=== PATIENT | female | born 1960 | race Caucasian/White ===

== ENCOUNTER 2019-10-14 16:31 | Inpatient (IN) ==
[2019-10-16] MEDS ORDERED: Ondansetron ODT 4 MG TAB.RAPDIS PO PRN (15:46)
[2019-10-16] MEDS: *HR* OxyCODONE Immed Rel 5 MG TABLET PO PRN (16:22)
[2019-10-16] MEDS: *HR* Metformin 500 MG TABLET PO SCH (16:22)
[2019-10-16] MEDS: Pregabalin 50 MG CAPSULE PO SCH (22:39)
[2019-10-16] MEDS: Baclofen 10 MG TABLET PO SCH (22:40)
[2019-10-17] MEDS: *HR* Enoxaparin 40 MG/0.4 ML SYRINGE SQ SCH (05:53)
[2019-10-17] MEDS: *HR* OxyCODONE Immed Rel 5 MG TABLET PO PRN ×4 (05:56→20:50)
[2019-10-17 06:52] LABS: Basophils % 0.4 %; Eosinophils # 0.5 K/mcL (0.0-0.6); Eosinophils % 4.8 %; Hematocrit 38.6 % (35.3-44.9); Hemoglobin 12.9 g/dL (11.5-15.4); Immature Granulocytes % 0.6 % (0-4); Lymphocytes # 3.6 K/mcL (0.6-4.6); Lymphocytes % 35.3 %; Mean Corpuscular HGB Conc 33.4 g/dL (31.6-35.5); Mean Corpuscular Hemoglobin 30.4 pg (28.0-33.3); Monocytes # 0.9 K/mcL (0.0-1.3); Monocytes % 9.3 %; Platelet Count 416 K/mcL (140-400); Red Blood Count 4.24 M/mcL (3.82-4.97); Red Cell Distribution Width 11.7 % (11.5-14.5); Segmented Neutrophils % 49.6 %; White Blood Count 10.1 K/mcL (4.3-11.1)
[2019-10-17 07:10] LABS: BUN/Creatinine Ratio 26 (6-26); Blood Urea Nitrogen 19 mg/dL (8-23); Calcium 9.3 mg/dL (8.6-10.3); Carbon Dioxide 32 mEq/L (23-29); Chloride 97 mEq/L (98-107); Glucose 153 mg/dL (70-105); Osmolality,Calculated 285 (280-300); Potassium 3.3 mEq/L (3.5-5.1); Sodium 135 mEq/L (136-145); eGFR For African Americans > 60 (> 60); eGFR For Non-African Americans > 60 (> 60)
[2019-10-17] MEDS ORDERED: [UNRECOGNIZED DRUG - REMARK] PO SCH (09:00)
[2019-10-17] MEDS: Ascorbic Acid 500 MG TABLET PO SCH (09:02)
[2019-10-17] MEDS: *HR* Metformin 500 MG TABLET PO SCH ×2 (09:03→17:09)
[2019-10-17] MEDS: Pregabalin 50 MG CAPSULE PO SCH ×3 (09:04→20:38)
[2019-10-17] MEDS: Cholecalciferol (D-3) 1,000 UNIT (25MCG) TABLET PO SCH (09:04)
[2019-10-17] MEDS: Multivit/Ca/Min/Fe/FA 1 TAB TABLET PO SCH (09:05)
[2019-10-17] MEDS: Cyanocobalamin (B-12) 1,000 MCG TABLET PO SCH (09:05)
[2019-10-17] MEDS: Baclofen 10 MG TABLET PO SCH (20:38)
[2019-10-18] MEDS: *HR* Enoxaparin 40 MG/0.4 ML SYRINGE SQ SCH (04:53)
[2019-10-18] MEDS: Cyanocobalamin (B-12) 1,000 MCG TABLET PO SCH (08:53)
[2019-10-18] MEDS: Pregabalin 50 MG CAPSULE PO SCH ×3 (08:53→20:16)
[2019-10-18] MEDS: *HR* Metformin 500 MG TABLET PO SCH ×2 (08:54→17:41)
[2019-10-18] MEDS: Cholecalciferol (D-3) 1,000 UNIT (25MCG) TABLET PO SCH (08:54)
[2019-10-18] MEDS: Ascorbic Acid 500 MG TABLET PO SCH (08:54)
[2019-10-18] MEDS: Multivit/Ca/Min/Fe/FA 1 TAB TABLET PO SCH (12:01)
[2019-10-18 13:24] LABS: Bilirubin,Urine Negative (Negative); Blood,Urine Negative (Negative); Clarity,Urine Clear (Clear); Color,Urine Yellow (Yellow); Glucose,Urine (UA) Normal (Normal); Ketones,Urine Negative (Negative); Leukocyte Esterase,Urine Negative (Negative); Nitrite,Urine Negative (Negative); PH,Urine 5.5 pH Units (5.0-8.0); Protein,Urine Trace mg/dL (Neg-Trace); Specific Gravity,Urine >= 1.030 (1.010-1.025); Urobilinogen,Urine Normal (Normal)
[2019-10-18] MEDS: *HR* OxyCODONE Immed Rel 5 MG TABLET PO PRN (14:06)
[2019-10-18] MEDS: Baclofen 10 MG TABLET PO SCH (20:15)
[2019-10-19 06:01] LABS: Hematocrit 34.3 % (35.3-44.9); Hemoglobin 11.7 g/dL (11.5-15.4); Mean Corpuscular HGB Conc 34.1 g/dL (31.6-35.5); Mean Corpuscular Hemoglobin 30.6 pg (28.0-33.3); Mean Corpuscular Volume 89.8 fL (83.0-100.0); Mean Platelet Volume 10.1 fL (9.4-12.4); Platelet Count 377 K/mcL (140-400); Red Blood Count 3.82 M/mcL (3.82-4.97); Red Cell Distribution Width 11.6 % (11.5-14.5); White Blood Count 10.1 K/mcL (4.3-11.1)
[2019-10-19] MEDS: *HR* Enoxaparin 40 MG/0.4 ML SYRINGE SQ SCH (06:01)
[2019-10-19 06:24] LABS: BUN/Creatinine Ratio 25 (6-26); Blood Urea Nitrogen 18 mg/dL (8-23); Carbon Dioxide 32 mEq/L (23-29); Chloride 95 mEq/L (98-107); Glucose 136 mg/dL (70-105); Osmolality,Calculated 284 (280-300); Potassium 3.4 mEq/L (3.5-5.1); Sodium 135 mEq/L (136-145); eGFR For African Americans > 60 (> 60); eGFR For Non-African Americans > 60 (> 60)
[2019-10-19] MEDS: Pregabalin 50 MG CAPSULE PO SCH ×3 (08:00→20:37)
[2019-10-19] MEDS: Ascorbic Acid 500 MG TABLET PO SCH (08:00)
[2019-10-19] MEDS: Cholecalciferol (D-3) 1,000 UNIT (25MCG) TABLET PO SCH (08:00)
[2019-10-19] MEDS: Cyanocobalamin (B-12) 1,000 MCG TABLET PO SCH (08:00)
[2019-10-19] MEDS: Multivit/Ca/Min/Fe/FA 1 TAB TABLET PO SCH (08:00)
[2019-10-19] MEDS: *HR* Metformin 500 MG TABLET PO SCH ×2 (08:00→17:21)
[2019-10-19] MEDS: *HR* OxyCODONE Immed Rel 5 MG TABLET PO PRN (10:48)
[2019-10-19] MEDS: Baclofen 10 MG TABLET PO SCH (20:36)
[2019-10-20] MEDS: *HR* OxyCODONE Immed Rel 5 MG TABLET PO PRN ×3 (03:24→21:55)
[2019-10-20] MEDS: *HR* Enoxaparin 40 MG/0.4 ML SYRINGE SQ SCH (05:28)
[2019-10-20 06:44] LABS: BUN/Creatinine Ratio 25 (6-26); Blood Urea Nitrogen 18 mg/dL (8-23); Calcium 9.3 mg/dL (8.6-10.3); Carbon Dioxide 32 mEq/L (23-29); Chloride 95 mEq/L (98-107); Glucose 131 mg/dL (70-105); Osmolality,Calculated 282 (280-300); Potassium 3.5 mEq/L (3.5-5.1); Sodium 134 mEq/L (136-145); eGFR For African Americans > 60 (> 60); eGFR For Non-African Americans > 60 (> 60)
[2019-10-20] MEDS: Ascorbic Acid 500 MG TABLET PO SCH (08:30)
[2019-10-20] MEDS: Pregabalin 50 MG CAPSULE PO SCH ×3 (08:30→21:56)
[2019-10-20] MEDS: Multivit/Ca/Min/Fe/FA 1 TAB TABLET PO SCH (08:30)
[2019-10-20] MEDS: Cyanocobalamin (B-12) 1,000 MCG TABLET PO SCH (08:31)
[2019-10-20] MEDS: Cholecalciferol (D-3) 1,000 UNIT (25MCG) TABLET PO SCH (08:31)
[2019-10-20] MEDS: *HR* Metformin 500 MG TABLET PO SCH ×2 (08:31→17:46)
[2019-10-20] MEDS: Baclofen 10 MG TABLET PO SCH (21:55)
[2019-10-21] MEDS: *HR* Enoxaparin 40 MG/0.4 ML SYRINGE SQ SCH (05:15)
[2019-10-21 06:26] LABS: BUN/Creatinine Ratio 20 (6-26); Blood Urea Nitrogen 14 mg/dL (8-23); Calcium 9.5 mg/dL (8.6-10.3); Carbon Dioxide 32 mEq/L (23-29); Chloride 95 mEq/L (98-107); Glucose 135 mg/dL (70-105); Osmolality,Calculated 283 (280-300); Potassium 3.5 mEq/L (3.5-5.1); Sodium 135 mEq/L (136-145); eGFR For African Americans > 60 (> 60); eGFR For Non-African Americans > 60 (> 60)
[2019-10-21] MEDS: Cyanocobalamin (B-12) 1,000 MCG TABLET PO SCH (08:37)
[2019-10-21] MEDS: Pregabalin 50 MG CAPSULE PO SCH ×3 (08:37→20:08)
[2019-10-21] MEDS: Multivit/Ca/Min/Fe/FA 1 TAB TABLET PO SCH (08:38)
[2019-10-21] MEDS: *HR* Metformin 500 MG TABLET PO SCH ×2 (08:38→17:08)
[2019-10-21] MEDS: Ascorbic Acid 500 MG TABLET PO SCH (08:38)
[2019-10-21] MEDS: Cholecalciferol (D-3) 1,000 UNIT (25MCG) TABLET PO SCH (08:38)
[2019-10-21] MEDS: *HR* OxyCODONE Immed Rel 5 MG TABLET PO PRN (10:40)
[2019-10-21] MEDS: Baclofen 10 MG TABLET PO SCH (20:09)
[2019-10-22] MEDS: *HR* Enoxaparin 40 MG/0.4 ML SYRINGE SQ SCH (05:18)
[2019-10-22] MEDS: Cyanocobalamin (B-12) 1,000 MCG TABLET PO SCH (09:39)
[2019-10-22] MEDS: Ascorbic Acid 500 MG TABLET PO SCH (09:39)
[2019-10-22] MEDS: Multivit/Ca/Min/Fe/FA 1 TAB TABLET PO SCH (09:39)
[2019-10-22] MEDS: Cholecalciferol (D-3) 1,000 UNIT (25MCG) TABLET PO SCH (09:40)
[2019-10-22] MEDS: Pregabalin 50 MG CAPSULE PO SCH ×3 (09:40→21:06)
[2019-10-22] MEDS: *HR* Metformin 500 MG TABLET PO SCH ×2 (09:41→17:15)
[2019-10-22] MEDS ORDERED: Bisacodyl 10 MG RECTAL SUPPOSITORY RC PRN (10:33)
[2019-10-22] MEDS: Baclofen 10 MG TABLET PO SCH (21:06)
[2019-10-23] MEDS: *HR* Enoxaparin 40 MG/0.4 ML SYRINGE SQ SCH (06:40)
[2019-10-23] MEDS: Ascorbic Acid 500 MG TABLET PO SCH (08:56)
[2019-10-23] MEDS: Cholecalciferol (D-3) 1,000 UNIT (25MCG) TABLET PO SCH (08:56)
[2019-10-23] MEDS: Multivit/Ca/Min/Fe/FA 1 TAB TABLET PO SCH (08:56)
[2019-10-23] MEDS: Cyanocobalamin (B-12) 1,000 MCG TABLET PO SCH (08:56)
[2019-10-23] MEDS: Pregabalin 50 MG CAPSULE PO SCH ×3 (08:56→21:50)
[2019-10-23] MEDS: *HR* Metformin 500 MG TABLET PO SCH ×2 (08:56→17:24)
[2019-10-23] MEDS: Baclofen 10 MG TABLET PO SCH (21:50)
[2019-10-24] MEDS: *HR* Enoxaparin 40 MG/0.4 ML SYRINGE SQ SCH (07:01)
[2019-10-24] MEDS: Multivit/Ca/Min/Fe/FA 1 TAB TABLET PO SCH (08:46)
[2019-10-24] MEDS: Cyanocobalamin (B-12) 1,000 MCG TABLET PO SCH (08:46)
[2019-10-24] MEDS: Pregabalin 50 MG CAPSULE PO SCH ×3 (08:46→21:18)
[2019-10-24] MEDS: Cholecalciferol (D-3) 1,000 UNIT (25MCG) TABLET PO SCH (08:46)
[2019-10-24] MEDS: Ascorbic Acid 500 MG TABLET PO SCH (08:46)
[2019-10-24] MEDS: *HR* Metformin 500 MG TABLET PO SCH ×2 (08:47→17:57)
[2019-10-24 13:31] LABS: Bilirubin,Urine Negative (Negative); Blood,Urine Moderate (Negative); Clarity,Urine Cloudy (Clear); Color,Urine Yellow (Yellow); Glucose,Urine (UA) Normal (Normal); Ketones,Urine Negative (Negative); Leukocyte Esterase,Urine Large (Negative); Nitrite,Urine Positive (Negative); Protein,Urine 30 mg/dL (Neg-Trace); Urobilinogen,Urine Normal (Normal)
[2019-10-24 14:15] LABS: Bacteria,Urine Many per hpf (None-Few); RBC,Urine 15-30 per hpf (0-3); Squamous Epithelial Cell,Urine Many per lpf (None-Few); WBC,Urine TNTC per hpf (0-3)
[2019-10-24] MEDS ORDERED: methylPREDNISolone 125 MG/2 ML VIAL IVP PRN (16:25)
[2019-10-24] MEDS ORDERED: methylPREDNISolone 125 MG/2 ML VIAL IM PRN (17:42)
[2019-10-24] MEDS: Cefuroxime PO 500 MG TABLET PO SCH (18:05)
[2019-10-24] MEDS: Baclofen 10 MG TABLET PO SCH (21:18)
[2019-10-25 05:48] LABS: Hematocrit 37.7 % (35.3-44.9); Hemoglobin 12.5 g/dL (11.5-15.4); Mean Corpuscular HGB Conc 33.2 g/dL (31.6-35.5); Mean Corpuscular Hemoglobin 30.3 pg (28.0-33.3); Mean Corpuscular Volume 91.3 fL (83.0-100.0); Mean Platelet Volume 10.4 fL (9.4-12.4); Platelet Count 367 K/mcL (140-400); Red Blood Count 4.13 M/mcL (3.82-4.97); Red Cell Distribution Width 11.8 % (11.5-14.5); White Blood Count 9.2 K/mcL (4.3-11.1)
[2019-10-25 06:03] LABS: BUN/Creatinine Ratio 19 (6-26); Blood Urea Nitrogen 14 mg/dL (8-23); Calcium 9.6 mg/dL (8.6-10.3); Carbon Dioxide 28 mEq/L (23-29); Chloride 100 mEq/L (98-107); Glucose 145 mg/dL (70-105); Osmolality,Calculated 289 (280-300); Potassium 3.8 mEq/L (3.5-5.1); Sodium 138 mEq/L (136-145); eGFR For African Americans > 60 (> 60); eGFR For Non-African Americans > 60 (> 60)
[2019-10-25] MEDS: Cefuroxime PO 500 MG TABLET PO SCH ×2 (06:56→17:19)
[2019-10-25] MEDS: *HR* Enoxaparin 40 MG/0.4 ML SYRINGE SQ SCH (06:56)
[2019-10-25] MEDS: Pregabalin 50 MG CAPSULE PO SCH ×3 (08:34→20:19)
[2019-10-25] MEDS: Multivit/Ca/Min/Fe/FA 1 TAB TABLET PO SCH (08:35)
[2019-10-25] MEDS: Ascorbic Acid 500 MG TABLET PO SCH (08:35)
[2019-10-25] MEDS: *HR* Metformin 500 MG TABLET PO SCH ×2 (08:35→17:19)
[2019-10-25] MEDS: Cholecalciferol (D-3) 1,000 UNIT (25MCG) TABLET PO SCH (08:35)
[2019-10-25] MEDS: Cyanocobalamin (B-12) 1,000 MCG TABLET PO SCH (08:35)
[2019-10-25] MEDS: Baclofen 10 MG TABLET PO SCH (20:18)
[2019-10-26] MEDS: Cefuroxime PO 500 MG TABLET PO SCH ×2 (05:40→16:39)
[2019-10-26] MEDS: *HR* Enoxaparin 40 MG/0.4 ML SYRINGE SQ SCH (05:40)
[2019-10-26] MEDS: Pregabalin 50 MG CAPSULE PO SCH ×3 (07:54→21:43)
[2019-10-26] MEDS: Cholecalciferol (D-3) 1,000 UNIT (25MCG) TABLET PO SCH (07:54)
[2019-10-26] MEDS: Multivit/Ca/Min/Fe/FA 1 TAB TABLET PO SCH (07:54)
[2019-10-26] MEDS: Cyanocobalamin (B-12) 1,000 MCG TABLET PO SCH (07:54)
[2019-10-26] MEDS: Ascorbic Acid 500 MG TABLET PO SCH (07:54)
[2019-10-26] MEDS: *HR* Metformin 500 MG TABLET PO SCH ×2 (07:55→16:39)
[2019-10-26] MEDS: Baclofen 10 MG TABLET PO SCH (21:42)
[2019-10-27] MEDS: *HR* Enoxaparin 40 MG/0.4 ML SYRINGE SQ SCH (06:07)
[2019-10-27] MEDS: Cefuroxime PO 500 MG TABLET PO SCH ×2 (06:08→17:34)
[2019-10-27] MEDS: Pregabalin 50 MG CAPSULE PO SCH ×3 (08:50→20:50)
[2019-10-27] MEDS: Multivit/Ca/Min/Fe/FA 1 TAB TABLET PO SCH (08:50)
[2019-10-27] MEDS: Cyanocobalamin (B-12) 1,000 MCG TABLET PO SCH (08:51)
[2019-10-27] MEDS: Ascorbic Acid 500 MG TABLET PO SCH (08:51)
[2019-10-27] MEDS: Cholecalciferol (D-3) 1,000 UNIT (25MCG) TABLET PO SCH (08:51)
[2019-10-27] MEDS: *HR* Metformin 500 MG TABLET PO SCH ×2 (08:51→17:34)
[2019-10-27] MEDS: Baclofen 10 MG TABLET PO SCH (20:50)
[2019-10-28] MEDS: Cefuroxime PO 500 MG TABLET PO SCH (06:26)
[2019-10-28] MEDS: *HR* Enoxaparin 40 MG/0.4 ML SYRINGE SQ SCH (06:26)
[2019-10-28 07:14] VITALS: BP 110/61
[2019-10-28] MEDS: Cholecalciferol (D-3) 1,000 UNIT (25MCG) TABLET PO SCH (08:20)
[2019-10-28] MEDS: Ascorbic Acid 500 MG TABLET PO SCH (08:20)
[2019-10-28] MEDS: Cyanocobalamin (B-12) 1,000 MCG TABLET PO SCH (08:20)
[2019-10-28] MEDS: Pregabalin 50 MG CAPSULE PO SCH (08:20)
[2019-10-28] MEDS: Multivit/Ca/Min/Fe/FA 1 TAB TABLET PO SCH (08:20)
[2019-10-28] MEDS: *HR* Metformin 500 MG TABLET PO SCH (08:20)
== END 2019-10-28 15:00 | disposition home health service (06) | DRG 949 ==
LOC: INPGRE 10-16 14:33

== ENCOUNTER 2021-06-30 07:19 | Inpatient (IN) ==
[2021-06-30] MEDS ORDERED: *HR* Dextrose 50 % in Water (Vial) 50 ML VIAL IVP PRN (18:16)
[2021-06-30] MEDS ORDERED: Dextrose Gel 15 GM/37.5 ML TUBE PO PRN ×2 (18:16)
[2021-06-30] MEDS ORDERED: D5% in Water 1,000 ML IVC PRN (18:16)
[2021-06-30] MEDS ORDERED: Hydrocortisone Rectal 2.5% CRM 28 GM TUBE RC PRN (19:18)
[2021-06-30] MEDS ORDERED: BETAMETHASONE DIPROPIONATE TP PRN (19:18)
[2021-06-30] MEDS ORDERED: Bisacodyl 10 MG RECTAL SUPPOSITORY RC PRN (19:18)
[2021-06-30] MEDS ORDERED: *HR* LORazepam 0.5 MG TABLET PO PRN (19:18)
[2021-06-30] MEDS: Zinc Sulfate 220 MG CAPSULE PO SCH (20:30)
[2021-06-30] MEDS: Pregabalin 75 MG CAPSULE PO SCH (20:30)
[2021-06-30] MEDS: *HR* Metformin 500 MG TABLET PO SCH (20:30)
[2021-06-30] MEDS: Cholecalciferol (D-3) 1,000 UNIT (25MCG) TABLET PO SCH (20:30)
[2021-06-30] MEDS: Vitamin E 200 UNIT (90MG) CAPSULE PO SCH (20:30)
[2021-06-30] MEDS: Ascorbic Acid 500 MG TABLET PO SCH (20:31)
[2021-06-30] MEDS: Baclofen 10 MG TABLET PO SCH (20:31)
[2021-06-30] MEDS: Sennosides 8.6 MG TABLET PO SCH (20:32)
[2021-06-30] MEDS: Magnesium Oxide 400 MG TABLET PO SCH (20:32)
[2021-06-30] MEDS: Acetaminophen 325 MG TABLET PO PRN (20:59)
[2021-06-30] MEDS ORDERED: MECOBALAMIN 1000 MCG SL SCH (21:00)
[2021-06-30] MEDS ORDERED: GARLIC 1000 MG PO SCH (21:00)
[2021-06-30] MEDS ORDERED: NON-FORMULARY MEDICATION 1 EACH EACH (Cinnamon Bark [Cinnamon] 500 MG Capsule) PO SCH (21:00)
[2021-06-30] MEDS: *HR* HYDROmorphone 2 MG TABLET PO PRN (21:54)
[2021-06-30] MEDS: Insulin LISPRO 300 UNITS/3 ML VIAL SUBQ SCH (21:56)
[2021-07-01 04:51] LABS: Basophils % 0.4 %; Eosinophils # 0.5 K/mcL (0.0-0.6); Eosinophils % 4.7 %; Hematocrit 29.8 % (35.3-44.9); Hemoglobin 9.2 g/dL (11.5-15.4); Immature Granulocytes % 1.9 % (0-4); Lymphocytes % 31.4 %; Mean Corpuscular HGB Conc 30.9 g/dL (31.6-35.5); Mean Corpuscular Hemoglobin 27.4 pg (28.0-33.3); Mean Corpuscular Volume 88.7 fL (83.0-100.0); Mean Platelet Volume 9.9 fL (9.4-12.4); Monocytes # 0.7 K/mcL (0.0-1.3); Monocytes % 7.1 %; Neutrophils # 5.2 K/mcL (1.6-8.9); Platelet Count 447 K/mcL (140-400); Red Blood Count 3.36 M/mcL (3.82-4.97); Segmented Neutrophils % 54.5 %; White Blood Count 9.5 K/mcL (4.3-11.1)
[2021-07-01 05:08] LABS: Alanine Aminotransferase 42 Units/L (7-52); Albumin 3.2 g/dL (3.5-5.7); Alkaline Phosphatase 128 Units/L (34-104); Aspartate Amino Transferase 22 Units/L (13-39); BUN/Creatinine Ratio 15 (6-26); Bilirubin,Total 0.3 mg/dL (0.3-1.0); Blood Urea Nitrogen 9 mg/dL (8-23); Calcium 8.8 mg/dL (8.6-10.3); Carbon Dioxide 32 mEq/L (23-29); Chloride 97 mEq/L (98-107); Globulin 3.3 g/dL (2.4-3.5); Glucose 144 mg/dL (70-105); Osmolality,Calculated 285 (280-300); Potassium 3.7 mEq/L (3.5-5.1); Sodium 137 mEq/L (136-145); Total Protein 6.5 g/dL (6.4-8.9); eGFR For African Americans > 60 (> 60); eGFR For Non-African Americans > 60 (> 60)
[2021-07-01] MEDS: *HR* HYDROmorphone 2 MG TABLET PO PRN ×4 (05:26→22:41)
[2021-07-01] MEDS: *HR* Enoxaparin 40 MG/0.4 ML SYRINGE SQ SCH (05:27)
[2021-07-01] MEDS: Insulin LISPRO 300 UNITS/3 ML VIAL SUBQ SCH ×4 (08:20→20:58)
[2021-07-01] MEDS: Lactobacillus 1 EACH CAP.SPRINK PO SCH (08:21)
[2021-07-01] MEDS: Vitamin E 200 UNIT (90MG) CAPSULE PO SCH ×2 (08:21→20:56)
[2021-07-01] MEDS: Sennosides 8.6 MG TABLET PO SCH ×2 (08:21→20:57)
[2021-07-01] MEDS: Pregabalin 75 MG CAPSULE PO SCH ×2 (08:21→20:55)
[2021-07-01] MEDS: Ascorbic Acid 500 MG TABLET PO SCH ×2 (08:22→20:55)
[2021-07-01] MEDS: Baclofen 10 MG TABLET PO SCH ×3 (08:22→20:58)
[2021-07-01] MEDS: Cyanocobalamin (B-12) 1,000 MCG TABLET PO SCH (08:22)
[2021-07-01] MEDS: Zinc Sulfate 220 MG CAPSULE PO SCH ×2 (08:22→20:56)
[2021-07-01] MEDS: Cholecalciferol (D-3) 1,000 UNIT (25MCG) TABLET PO SCH ×2 (08:24→20:57)
[2021-07-01] MEDS: *HR* Metformin 500 MG TABLET PO SCH ×2 (08:24→21:21)
[2021-07-01] MEDS: Multivit/Ca/Min/Fe/FA 1 TAB TABLET PO SCH (08:24)
[2021-07-01] MEDS: Magnesium Oxide 400 MG TABLET PO SCH ×2 (08:25→20:58)
[2021-07-01] MEDS ORDERED: NON-FORMULARY MEDICATION 1 EACH EACH PO SCH (09:00)
[2021-07-01] MEDS: polyethylene glycoL 3350 17 GM POWD.PACK PO SCH (10:19)
[2021-07-01] MEDS: Acetaminophen 325 MG TABLET PO PRN (11:48)
[2021-07-02] MEDS: Acetaminophen 325 MG TABLET PO PRN (00:58)
[2021-07-02] MEDS: *HR* HYDROmorphone 2 MG TABLET PO PRN ×2 (05:57→14:45)
[2021-07-02] MEDS: *HR* Enoxaparin 40 MG/0.4 ML SYRINGE SQ SCH (05:58)
[2021-07-02] MEDS: Vitamin E 200 UNIT (90MG) CAPSULE PO SCH ×2 (08:52→20:53)
[2021-07-02] MEDS: Cholecalciferol (D-3) 1,000 UNIT (25MCG) TABLET PO SCH ×2 (08:52→20:54)
[2021-07-02] MEDS: Multivit/Ca/Min/Fe/FA 1 TAB TABLET PO SCH (08:53)
[2021-07-02] MEDS: Pregabalin 75 MG CAPSULE PO SCH ×2 (08:53→20:53)
[2021-07-02] MEDS: Lactobacillus 1 EACH CAP.SPRINK PO SCH (08:53)
[2021-07-02] MEDS: Baclofen 10 MG TABLET PO SCH ×3 (08:53→20:55)
[2021-07-02] MEDS: Cyanocobalamin (B-12) 1,000 MCG TABLET PO SCH (08:53)
[2021-07-02] MEDS: *HR* Metformin 500 MG TABLET PO SCH ×2 (08:53→20:53)
[2021-07-02] MEDS: Ascorbic Acid 500 MG TABLET PO SCH ×2 (08:53→20:53)
[2021-07-02] MEDS: Magnesium Oxide 400 MG TABLET PO SCH ×2 (08:53→20:53)
[2021-07-02] MEDS: Sennosides 8.6 MG TABLET PO SCH ×2 (08:54→20:54)
[2021-07-02] MEDS: Insulin LISPRO 300 UNITS/3 ML VIAL SUBQ SCH ×4 (08:54→20:57)
[2021-07-02] MEDS: polyethylene glycoL 3350 17 GM POWD.PACK PO SCH (08:54)
[2021-07-02] MEDS: Zinc Sulfate 220 MG CAPSULE PO SCH ×2 (14:50→20:54)
[2021-07-02] MEDS ORDERED: Lactulose Oral Soln 20 GM/30 ML UDC PO PRN (16:24)
[2021-07-03] MEDS: *HR* HYDROmorphone 2 MG TABLET PO PRN ×4 (03:13→20:50)
[2021-07-03] MEDS: *HR* Enoxaparin 40 MG/0.4 ML SYRINGE SQ SCH (05:57)
[2021-07-03] MEDS: Zinc Sulfate 220 MG CAPSULE PO SCH ×2 (08:06→20:49)
[2021-07-03] MEDS: polyethylene glycoL 3350 17 GM POWD.PACK PO SCH (08:06)
[2021-07-03] MEDS: Ascorbic Acid 500 MG TABLET PO SCH ×2 (08:06→20:49)
[2021-07-03] MEDS: Sennosides 8.6 MG TABLET PO SCH ×2 (08:07→20:49)
[2021-07-03] MEDS: Pregabalin 75 MG CAPSULE PO SCH ×2 (08:07→20:49)
[2021-07-03] MEDS: Baclofen 10 MG TABLET PO SCH ×3 (08:07→20:51)
[2021-07-03] MEDS: *HR* Metformin 500 MG TABLET PO SCH ×2 (08:08→20:50)
[2021-07-03] MEDS: Cyanocobalamin (B-12) 1,000 MCG TABLET PO SCH (08:08)
[2021-07-03] MEDS: Lactobacillus 1 EACH CAP.SPRINK PO SCH (08:08)
[2021-07-03] MEDS: Multivit/Ca/Min/Fe/FA 1 TAB TABLET PO SCH (08:08)
[2021-07-03] MEDS: Cholecalciferol (D-3) 1,000 UNIT (25MCG) TABLET PO SCH ×2 (08:09→20:51)
[2021-07-03] MEDS: Vitamin E 200 UNIT (90MG) CAPSULE PO SCH ×2 (08:09→20:49)
[2021-07-03] MEDS: Magnesium Oxide 400 MG TABLET PO SCH ×2 (08:09→20:51)
[2021-07-03] MEDS: Insulin LISPRO 300 UNITS/3 ML VIAL SUBQ SCH ×4 (08:16→20:58)
[2021-07-03] MEDS: Acetaminophen 325 MG TABLET PO PRN (15:05)
[2021-07-04] MEDS: *HR* Enoxaparin 40 MG/0.4 ML SYRINGE SQ SCH (05:48)
[2021-07-04] MEDS: *HR* HYDROmorphone 2 MG TABLET PO PRN ×2 (05:48→21:01)
[2021-07-04] MEDS: Insulin LISPRO 300 UNITS/3 ML VIAL SUBQ SCH ×4 (07:41→21:02)
[2021-07-04] MEDS: Vitamin E 200 UNIT (90MG) CAPSULE PO SCH ×2 (07:49→21:00)
[2021-07-04] MEDS: Ascorbic Acid 500 MG TABLET PO SCH ×2 (07:49→21:00)
[2021-07-04] MEDS: Pregabalin 75 MG CAPSULE PO SCH ×2 (07:49→21:01)
[2021-07-04] MEDS: Magnesium Oxide 400 MG TABLET PO SCH ×2 (07:49→21:02)
[2021-07-04] MEDS: Baclofen 10 MG TABLET PO SCH ×3 (07:50→21:01)
[2021-07-04] MEDS: Multivit/Ca/Min/Fe/FA 1 TAB TABLET PO SCH (07:50)
[2021-07-04] MEDS: Cyanocobalamin (B-12) 1,000 MCG TABLET PO SCH (07:50)
[2021-07-04] MEDS: *HR* Metformin 500 MG TABLET PO SCH ×2 (07:50→21:01)
[2021-07-04] MEDS: Cholecalciferol (D-3) 1,000 UNIT (25MCG) TABLET PO SCH ×2 (07:50→21:00)
[2021-07-04] MEDS: Zinc Sulfate 220 MG CAPSULE PO SCH ×2 (07:51→21:01)
[2021-07-04] MEDS: Lactobacillus 1 EACH CAP.SPRINK PO SCH (07:52)
[2021-07-04] MEDS: polyethylene glycoL 3350 17 GM POWD.PACK PO SCH (07:53)
[2021-07-04] MEDS: Sennosides 8.6 MG TABLET PO SCH ×2 (07:53→21:02)
[2021-07-05] MEDS: *HR* HYDROmorphone 2 MG TABLET PO PRN ×2 (02:28→08:19)
[2021-07-05] MEDS: *HR* Enoxaparin 40 MG/0.4 ML SYRINGE SQ SCH (06:24)
[2021-07-05 06:52] VITALS: BP 108/66; PULSE 71; RESP 18; TEMP 98.3; O2SAT 93
[2021-07-05] MEDS: Pregabalin 75 MG CAPSULE PO SCH (08:20)
[2021-07-05] MEDS: Cholecalciferol (D-3) 1,000 UNIT (25MCG) TABLET PO SCH (08:20)
[2021-07-05] MEDS: Vitamin E 200 UNIT (90MG) CAPSULE PO SCH (08:20)
[2021-07-05] MEDS: Zinc Sulfate 220 MG CAPSULE PO SCH (08:20)
[2021-07-05] MEDS: Baclofen 10 MG TABLET PO SCH (08:21)
[2021-07-05] MEDS: Ascorbic Acid 500 MG TABLET PO SCH (08:21)
[2021-07-05] MEDS: Cyanocobalamin (B-12) 1,000 MCG TABLET PO SCH (08:21)
[2021-07-05] MEDS: Magnesium Oxide 400 MG TABLET PO SCH (08:22)
[2021-07-05] MEDS: *HR* Metformin 500 MG TABLET PO SCH (08:22)
[2021-07-05] MEDS: Lactobacillus 1 EACH CAP.SPRINK PO SCH (08:22)
[2021-07-05] MEDS: Multivit/Ca/Min/Fe/FA 1 TAB TABLET PO SCH (08:22)
[2021-07-05] MEDS: polyethylene glycoL 3350 17 GM POWD.PACK PO SCH (08:22)
[2021-07-05] MEDS: Sennosides 8.6 MG TABLET PO SCH (08:33)
[2021-07-05] MEDS: Insulin LISPRO 300 UNITS/3 ML VIAL SUBQ SCH ×2 (08:33→11:39)
== END 2021-07-05 13:15 | disposition home or self-care (01) | DRG 560 ==
LOC: INPGRE 17:19
PROVIDERS: ADMIT Family Medicine; ATTEND Family Medicine